=== PATIENT | male | born 1945 | race Two or more races ===

== ENCOUNTER 2018-02-21 13:51 | Outpatient (CLI) | payer OTHER ==
[~2018-02-21 13:51] MED LIST: CYMBALTA60 MG PO; DILTIAZEM 24HR180 MG PO; LYRICA225 MG PO; PANTOPRAZOLE SO20 MG PO; PERCOCET 5-3251 EACH; SYNTHROID200 MCG PO; TAMS0.4C PO
== END 2018-02-21 14:06 | disposition home or self-care (01) ==
LOC: LAB 13:51
DX: K21.9 Gastro-esophageal reflux disease without esophagitis (principal); M51.36 Other intervertebral disc degeneration, lumbar region; D68.8 Other specified coagulation defects; M51.37 Other intervertebral disc degeneration, lumbosacral region; M54.07 Panniculitis affecting regions of neck and back, lumbosacral region; K29.70 Gastritis, unspecified, without bleeding; N39.0 Urinary tract infection, site not specified

== ENCOUNTER → 2018-03-21 | Day surgery (SDC) | payer OTHER | END | disposition home or self-care (01) | LOC: ADM 03-17 13:00 → CIR.AMB 08:30 | DX: M51.26 Other intervertebral disc displacement, lumbar region (principal) ==

== ENCOUNTER 2022-01-02 10:09 | Outpatient (CLI) | payer OTHER | END 2022-01-02 10:15 | disposition home or self-care (01) | LOC: RX STUDY 10:09 | DX: K21.9 Gastro-esophageal reflux disease without esophagitis (principal); R10.13 Epigastric pain ==